=== PATIENT | male | born 1960 | race Caucasian/White ===

== ENCOUNTER 2023-04-30 14:21 | Emergency (ER) | payer BC, SELFPAY ==
--- NOTE | 2023-04-30 14:26 | ED.GENADULT ---
HPI - General Adult General Chief complaint: Dizziness Stated complaint: Shortness of Breath Time Seen by Provider: 04/30/23 14:30 Source: patient and RN notes reviewed Mode of arrival: ambulatory Limitations: no limitations History of Present Illness HPI narrative: 63-year-old male with hx HTN presented for complaints of left arm and leg numbness and tingling, onset this morning. Endorses yesterday he had headache and left eye 'floater' all day. reports pt appeared confused this morning, patient states it was due to dizziness. Also reports nausea today. Denies headache or vision changes at this time. States he has been remodeling a house and did a lot of labor yesterday. Denies falling or injury. Denies weakness to the extremities, facial droop, cp, palpitations, sob, n/v/d/f/c. Patient has stopped taking BP medications. Smokes 1PPD, Drinks 12 beers daily. Hx cervcal fusion with residual cervical radiculopathy to left arm and 2nd-3rd digits. Related Data Home Medications Medication Instructions Recorded Confirmed pantoprazole 40 mg tablet,delayed 40 mg PO DIRECTED 04/30/23 04/30/23 release Allergies Allergy/AdvReac Type Severity Reaction Status Date / Time Penicillins Allergy Mild RASH Verified 04/30/23 14:47 Review of Systems Review of Systems: CONSTITUTIONAL: Denies body aches, fever, chills, or sweats. EYES: Reports floater yesterday denies visual changes, redness, or discharge. ENT: Denies rhinorrhea, congestion, sore throat, or otalgia. CARDIOVASCULAR: Denies chest pain, palpitations, or edema. RESPIRATORY: Denies cough or dyspnea. GASTROINTESTINAL: Denies abdominal pain, vomiting, or diarrhea. GENITOURINARY: Denies dysuria or hematuria. SKIN: Denies rash, itching, or wounds. MUSCULOSKELETAL: Denies back pain, joint pain, or myalgia. NEUROLOGIC: Endorses LUE and LLE numbness, tingling, dizziness All systems reviewed & are unremarkable except as noted in HPI and below PMFSH Past Medical History Medical History Cervical vertebral fusion Hypertension Social History Social History Smoking packs per day: 1 Smoking cigarettes per day: 20.0 Smoking status: Current every day smoker Tobacco type: cigarettes Alcohol intake: current Drinks per week: 80 Alcohol use details: drinks at least 12 beers/day Substance use type: marijuana Comments At time of signature, I have reviewed and agree with nursing past medical, surgical, social and family history unless otherwise noted. Please see nursing chart for further information. There is no relevant family history pertinent to the presenting complaint Exam Narrative: GENERAL: Well-appearing, well-nourished HEAD: Normocephalic, atraumatic. EYES: PERRLA, EOMI. ENT: Mucous membranes pink and moist. NECK: Normal AROM. Supple. No lymphadenopathy. CHEST: No respiratory distress. Clear to auscultation. HEART: Regular rate and rhythm. No murmur appreciated. Normal peripheral pulses. ABDOMEN: Soft, nontender, nondistended, normal active bowel sounds. EXTREMITIES: Normal range of motion. No edema. SKIN: Warm, dry, no rash. Capillary refill normal. Normal skin turgor. NEURO:No focal deficits. Alert and oriented x3. EOMs intact without nystagmus. No facial droop/asymmetry noted bilaterally. Grimace intact. Tongue midline. Intact sensation in face. Shoulder shrug intact. Strength 5/5 bilateral upper extremities. Strength 5/5 bilateral lower extremities. Ambulatory exam with a slow steady gait. PSYCH: Normal affect. Course Course Emergency Course: Patient is aware of diagnosis, understands and agrees to treatment plan. Anticipatory guidance given. Patient agrees to follow-up as directed and is aware of reasons to seek care at the emergency department. Portions of this record may have been created with voice recog
[2023-04-30 14:40] VITALS: BP 180/89; PULSE 95; RESP 20; TEMP 36.8; O2SAT 97
== END 2023-04-30 14:57 | disposition short-term general hospital (02) ==
PROVIDERS: Emergency Provider Nurse Practitioner Family; PCP Family Medicine
DX: R20.0 Anesthesia of skin (principal); F17.210 Nicotine dependence, cigarettes, uncomplicated; I10 Essential (primary) hypertension
CPT/HCPCS: 93005; 99205; G0463